=== PATIENT | male | born 1990 ===

== ENCOUNTER 2019-04-24 10:12 | Emergency (ER) | payer OTHER ==
[2019-04-24] MEDS ORDERED: Rabies VIRUS VACCINE (RabAvert)* 2.5 UNITS VIAL IM ONE (10:39)
[2019-04-24 10:40] VITALS: BP 128/86
--- NOTE | 2019-04-24 11:05 | UC ---
Bite Injury/Animal HPI - HPI Summary HPI Summary: 28-year-old male comes in for his day 3 rabies immunization. Patient was bitten on the left wrist on April 17, 2019 by a an unknown cat. He was given immunoglobulin for rabies on April 21, 2019 also his first rabies immunization. Patient feels well. There is no signs of infection at the wound. He got his first series on 21 April 2019 at [facility] however they are closed today because his Thursday and therefore he is here for his day 3 rabies vaccination. - History of Current Complaint Chief Complaint: UCGeneralIllness Stated Complaint: RABIES Time Seen by Provider: 04/24/19 10:51 Pain Intensity: 0 - Allergies/Home Medications Allergies/Adverse Reactions: Allergies Allergy/AdvReac Type Severity Reaction Status Date / Time No Known Allergies Allergy Verified 04/24/19 10:40 Home Medications: Home Medications Amphetamine MIXED SALTS TAB* [Adderall TAB*] 30 mg PO DAILY 04/24/19 [History Confirmed 04/24/19] Dextroamphetamine/Amphetamine [Adderall 20 mg Tablet] 20 mg PO BID 04/24/19 [ History Confirmed 04/24/19] PMH/Surg Hx/FS Hx/Imm Hx Previously Healthy: Yes Other Psychological History: ADHD - Surgical History Surgical History: None - Family History Known Family History: Positive: Non-Contributory - Social History Alcohol Use: Weekly Substance Use Type: Marijuana Substance Use Comment - Amount & Last Used: occasionally Smoking Status (MU): Never Smoked Tobacco Review of Systems All Other Systems Reviewed And Are Negative: Yes Constitutional: Positive: Negative Skin: Positive: Other - SEE HPI Eyes: Positive: Negative ENT: Positive: Negative Respiratory: Positive: Negative Cardiovascular: Positive: Negative Gastrointestinal: Positive: Negative Motor: Positive: Negative Neurovascular: Positive: Negative Musculoskeletal: Positive: Negative Neurological: Positive: Negative Psychological: Positive: Negative Is Patient Immunocompromised?: No Physical Exam Triage Information Reviewed: Yes Appearance: Well-Appearing, No Pain Distress, Well-Nourished Vital Signs: Initial Vital Signs Temp 97.9 F 04/24/19 10:34 Pulse 75 04/24/19 10:34 Resp 12 04/24/19 10:34 BP 128/86 04/24/19 10:34 Pulse Ox 99 04/24/19 10:34 Vital Signs Reviewed: Yes Eye Exam: Normal Eyes: Positive: Conjunctiva Clear Neck: Positive: Supple Respiratory: Positive: No respiratory distress Musculoskeletal: Positive: Strength Intact, ROM Intact Neurological: Positive: Alert Psychological: Positive: Age Appropriate Behavior Skin Exam: Normal Bite Injury Course/Dx - Differential Dx/Diagnosis Provider Diagnosis: Cat bite of left wrist, Need for rabies vaccination Discharge ED - Sign-Out/Discharge Documenting (check all that apply): Patient Departure All imaging exams completed and their final reports reviewed: No Studies - Discharge Plan Condition: Stable Disposition: HOME Patient Education Materials: Rabies Vaccine (ED) Referrals: [facility] [Provider Group] [facility] [Outside] Additional Instructions: FOLLOW UP WITH [facility] FOR THE REMAINDER OF YOUR RABIES VACCINATION SERIES. GET RECHECKED SOONER IF YOUR CONDITION WORSENS OR ANY QUESTIONS OR CONCERNS. - Billing Disposition and Condition Condition: STABLE Disposition: Home
== END 2019-04-24 11:10 | disposition home or self-care (01) ==
LOC: UCEAST 10:12
DX: Z29.14 Encounter for prophylactic rabies immune globulin (principal); F90.9 Attention-deficit hyperactivity disorder, unspecified type
CPT/HCPCS: 90471; 90675; 99201; G0463